=== PATIENT | female | born 1960 | race African-American/Black ===

== ENCOUNTER 2020-04-20 10:11 | Emergency (ER) | payer OTHER | END 2020-04-20 12:26 | disposition home or self-care (01) | LOC: JVIRT 10:11 | DX: Z20.822 Contact with and (suspected) exposure to COVID-19 (principal) | CPT/HCPCS: C9803; G2251-GT; Q3014-GT; U0003 ==

== ENCOUNTER 2020-06-10 12:59 | Emergency (ER) | payer OTHER ==
[2020-06-11 10:08] LABS: SARS-CoV-2 NAA Not Detected (Not Detected)
== END 2020-06-10 13:59 | disposition home or self-care (01) ==
LOC: JVIRT 12:59
DX: Z11.52 Encounter for screening for COVID-19 (principal)
CPT/HCPCS: C9803; G2251-GT; Q3014-GT; U0003; U0005

== ENCOUNTER 2020-08-28 00:53 | Emergency (ER) | payer OTHER ==
[2020-08-28] MEDS ORDERED: LABETALOL HCL 5 MG/1 ML (100MG/20 ML VIAL) IVPUSH ONE (01:09)
[2020-08-28 01:11] VITALS: TEMP 98.6; BMI 33.2
[2020-08-28] MEDS ORDERED: morphine CARPU-JECT 2 MG/1 ML DISP.SYRIN IVPUSH ONE (01:25)
[2020-08-28] MEDS ORDERED: MORPHINE SULFATE 2 MG/ML VIAL ONE (01:29)
[2020-08-28] MEDS ORDERED: ONDANSETRON 4 MG/2 ML VIAL IVPUSH ONE (01:33)
[2020-08-28] MEDS ORDERED: ONDANSETRON 4 MG/2 ML VIAL ONE (01:34)
[2020-08-28 01:36] LABS: BASO % 0.6 % (0-2.0); EOS % 2.2 % (0-4.5); HEMATOCRIT 43.9 % (32.4-45.2); HEMOGLOBIN 14.5 GM/dL (10.7-15.3); LYMPH % 9.1 % (8-40); MCH 28.9 pg (25.7-33.7); MEAN CELL VOLUME 87.5 fl (80-96); MEAN PLT VOLUME 9.7 fl (7.5-11.1); MONO % 4.6 % (3.8-10.2); NEUT % 83.5 % (42.8-82.8); PLATELET COUNT 293 10^3/uL (134-434); RBC 5.02 M/mm3 (3.60-5.2); RDW 13.4 % (11.6-15.6); WHITE BLOOD COUNT 10.5 K/mm3 (4.0-10.0)
[2020-08-28 01:44] LABS: INR 1.1 (0.83-1.09); PROTHROMBIN TIME (PATIENT) 13.5 SEC (9.7-13.0)
[2020-08-28 01:47] LABS: ACTIVATED PTT 31.2 SECONDS (25.2-36.5)
[2020-08-28 01:53] LABS: CHLORIDE 110 mmol/L (98-107); SODIUM 140 mmol/L (136-145)
[2020-08-28 01:56] LABS: ALBUMIN 4.4 g/dl (3.4-5.0); ANION GAP 9 MMOL/L (8-16); CALCIUM 9.5 mg/dL (8.5-10.1); CO2 21 mmol/L (21-32); GLUCOSE,RANDOM 115 mg/dL (74-106); LIPASE 70 U/L (73-393)
[2020-08-28 01:59] LABS: CREATININE 1.1 mg/dL (0.55-1.3); SGOT/AST 16 U/L (15-37); SGPT/ALT 18 U/L (13-61)
[2020-08-28 02:01] LABS: BILIRUBIN,TOTAL 0.4 mg/dL (0.2-1); TOT PROT 8.8 g/dl (6.4-8.2)
[2020-08-28 02:02] LABS: ALK PHOS 118 U/L (45-117)
[2020-08-28] MEDS ORDERED: morphine CARPU-JECT 4 MG/1 ML DISP.SYRIN IVPUSH ONE (03:00)
[2020-08-28] MEDS ORDERED: SODIUM CHLORIDE 0.9% 500 ML INFUS.BAG IV ONE (03:00)
[2020-08-28] MEDS ORDERED: morphine SULFATE 4 MG/ML VIAL ONE (03:18)
[2020-08-28 03:47] LABS: EPI CELLS >36 /uL (0-25.1); HYALINE CASTS 14 /uL (0-3.1); PH,URINE 5.5 (5.0-8.0); URINE APPEARANCE TURBID; URINE BACTERIA 6485 /uL (0-1359); URINE BILIRUBIN NEGATIVE (NEGATIVE); URINE COLOR YELLOW; URINE GLUCOSE (UA) NEGATIVE (NEGATIVE); URINE KETONE NEGATIVE (NEGATIVE); URINE LEUK ESTERASE 2+ (NEGATIVE); URINE NITRITE NEGATIVE (NEGATIVE); URINE PROTEIN 2+ (NEGATIVE); URINE WBC 425 /uL (0-25.8)
[2020-08-28] MEDS ORDERED: CEFTRIAXONE 1 GM in DEXTROSE 5%-WATER - 50 ML IVPB ONE (04:13)
[2020-08-28] MEDS ORDERED: VALSARTAN 40 MG TABLET PO ONE (04:14)
[2020-08-28] MEDS ORDERED: VALSARTAN 80 MG TABLET ONE (04:18)
[2020-08-28] MEDS ORDERED: CEFTRIAXONE 1 GM/50 ML BAG ONE (04:18)
[2020-08-28 06:53] VITALS: BP 231/119; PULSE 69
[2020-08-28 15:28] LABS: URINE RBC 31.2 /uL (0-23.9)
[2020-08-29] MEDS ORDERED: ENOXAPARIN NA (PORCINE) 40 MG/0.4 ML DISP.SYRIN SQ SCH (10:00)
== END 2020-08-28 06:53 | disposition home or self-care (01) ==
LOC: JER 00:53
DX: R10.31 Right lower quadrant pain (principal); N30.00 Acute cystitis without hematuria
CPT/HCPCS: 36415; 71045-TC-FY; 74176-TC; 80053; 81003; 83690; 84436; 84443; 84479; 84484; 85025; 85610; 85730; 87086; 87186; 93005; 93010; 99285-25

== ENCOUNTER 2020-08-29 00:08 | Inpatient (IN) | payer OTHER ==
[2020-08-29] MEDS ORDERED: SODIUM CHLORIDE 0.9% 500 ML INFUS.BAG IV ONE (01:26)
[2020-08-29] MEDS ORDERED: CEFTRIAXONE 1 GM in DEXTROSE 5%-WATER - 100 ML IVPB ONE (01:26)
[2020-08-29] MEDS ORDERED: morphine CARPU-JECT 4 MG/1 ML DISP.SYRIN IVPUSH ONE ×2 (01:26→02:44)
[2020-08-29] MEDS ORDERED: ONDANSETRON 4 MG/2 ML VIAL IVPUSH ONE (01:26)
[2020-08-29] MEDS ORDERED: LIDOCAINE 5% TOPICAL PATCH TP ONE (01:27)
[2020-08-29] MEDS ORDERED: KETOROLAC TROMETHAMINE 30 MG/1 ML VIAL IVPUSH ONE (01:58)
[2020-08-29] MEDS ORDERED: VALSARTAN 80 MG TABLET PO ONE (01:58)
[2020-08-29] MEDS ORDERED: morphine SULFATE 4 MG/ML VIAL ONE (02:19)
[2020-08-29] MEDS ORDERED: LIDOCAINE 5% TOPICAL PATCH ONE (02:19)
[2020-08-29] MEDS ORDERED: ONDANSETRON 4 MG/2 ML VIAL ONE ×2 (02:19→10:58)
[2020-08-29] MEDS ORDERED: CEFTRIAXONE 1 GM/50 ML BAG ONE (02:19)
[2020-08-29] MEDS ORDERED: KETOROLAC TROMETHAMINE 30 MG/1 ML VIAL ONE (02:44)
[2020-08-29] MEDS ORDERED: VALSARTAN 80 MG TABLET ONE (02:44)
[2020-08-29 03:10] LABS: BASO % 0.4 % (0-2.0); EOS % 0.1 % (0-4.5); HEMATOCRIT 43.3 % (32.4-45.2); HEMOGLOBIN 14.1 GM/dL (10.7-15.3); LYMPH % 8.9 % (8-40); MCH 28.5 pg (25.7-33.7); MCHC 32.5 g/dl (32.0-36.0); MEAN CELL VOLUME 87.8 fl (80-96); MEAN PLT VOLUME 10.4 fl (7.5-11.1); MONO % 4.9 % (3.8-10.2); NEUT % 85.7 % (42.8-82.8); PLATELET COUNT 292 10^3/uL (134-434); RBC 4.93 M/mm3 (3.60-5.2); RDW 13.3 % (11.6-15.6); WHITE BLOOD COUNT 12.6 K/mm3 (4.0-10.0)
[2020-08-29 03:28] LABS: ALBUMIN 4.4 g/dl (3.4-5.0); CALCIUM 9.2 mg/dL (8.5-10.1)
[2020-08-29 03:29] LABS: BLOOD UREA NITROGEN 15.9 mg/dL (7-18)
[2020-08-29 03:33] LABS: BILIRUBIN,TOTAL 0.6 mg/dL (0.2-1); TOT PROT 8.6 g/dl (6.4-8.2)
[2020-08-29] MEDS ORDERED: ACETAMINOPHEN 1000 MG/100 ML VIAL (NON FORMULARY) IVPB ONE (06:39)
[2020-08-29] MEDS ORDERED: ACETAMINOPHEN INJECTION 100 ML IVPB ONE (06:43)
[2020-08-29] MEDS ORDERED: hydrALAZINE HCL 20 MG/ML VIAL IVPUSH PRN (09:55)
[2020-08-29] MEDS ORDERED: morphine CARPU-JECT 4 MG/1 ML DISP.SYRIN IVPUSH PRN (09:57)
[2020-08-29] MEDS ORDERED: ACETAMINOPHEN 325 MG TABLET (FP) PO PRN (09:59)
[2020-08-29] MEDS ORDERED: MORPHINE SULFATE 2 MG/ML VIAL ONE ×2 (10:11→10:37)
[2020-08-29] MEDS: morphine SULFATE 4 MG/ML VIAL IVPUSH PRN (10:24)
[2020-08-29] MEDS ORDERED: PIPERACILLIN/TAZOB 3.375 GM 3.375 GM in DEXTROSE 5%-WATER - 50 ML IVPB SCH (10:30)
[2020-08-29] MEDS ORDERED: ONDANSETRON 4 MG/2 ML VIAL IVPUSH PRN (10:31)
[2020-08-29] MEDS ORDERED: PANTOPRAZOLE SODIUM 40 MG VIAL ONE (10:58)
[2020-08-29] MEDS ORDERED: PIPERACILLIN/TAZOB 3.375 GM 3.375 GM/50 ML BAG IVPB ONE (10:58)
[2020-08-29] MEDS: LABETALOL HCL 100 MG TABLET (FP) PO SCH ×2 (11:00→21:15)
[2020-08-29] MEDS: MORPHINE SULFATE 2 MG/ML VIAL IVPUSH PRN ×2 (11:01→18:31)
[2020-08-29] MEDS: PANTOPRAZOLE SODIUM 40 MG VIAL IVPUSH SCH ×2 (11:02→21:15)
[2020-08-29] MEDS: D5-1/2NS+10 MEQ KCL - 10 MEQ/1,000 ML INFUS.BAG IV SCH (12:44)
[2020-08-29] MEDS ORDERED: MORPHINE SULFATE 2 MG/ML VIAL IVPUSH ONE (12:45)
[2020-08-29] MEDS: ONDANSETRON 4 MG/2 ML VIAL IVPUSH SCH ×2 (13:30→21:15)
[2020-08-29] MEDS ORDERED: PIPERACILLIN/TAZOBACTAM 3.375 GM VIAL IVPB ONE (17:47)
[2020-08-29] MEDS ORDERED: DEXTROSE 5%-WATER - 50 ML IVPB ONE (17:47)
[2020-08-29] MEDS: PIPERACILLIN/TAZOB 3.375 GM 3.375 GM in DEXTROSE 5%-WATER - 50 ML IVPB SCH (17:53)
[2020-08-29] MEDS: hydrALAZINE HCL 20 MG/ML VIAL IVPB PRN (21:15)
[2020-08-29] MEDS ORDERED: LIDOCAINE PATCH REMOVAL MC ONE (22:00)
[2020-08-30] MEDS ORDERED: CEPHALEXIN MONOHYDRATE 500 MG CAPSULE (UD) PO SCH
[2020-08-30] MEDS ORDERED: DEXTROSE 5%-WATER - 50 ML IVPB ONE ×3 (02:41→18:21)
[2020-08-30] MEDS ORDERED: PIPERACILLIN/TAZOBACTAM 3.375 GM VIAL IVPB ONE ×3 (02:41→18:21)
[2020-08-30] MEDS: PIPERACILLIN/TAZOB 3.375 GM 3.375 GM in DEXTROSE 5%-WATER - 50 ML IVPB SCH ×3 (03:06→18:35)
[2020-08-30] MEDS: D5-1/2NS+10 MEQ KCL - 10 MEQ/1,000 ML INFUS.BAG IV SCH ×3 (03:07→17:37)
[2020-08-30] MEDS: MORPHINE SULFATE 2 MG/ML VIAL IVPUSH PRN ×3 (05:14→20:42)
[2020-08-30] MEDS: ONDANSETRON 4 MG/2 ML VIAL IVPUSH SCH ×3 (05:14→20:45)
[2020-08-30 10:03] LABS: BLOOD UREA NITROGEN 27.2 mg/dL (7-18); CALCIUM 8.4 mg/dL (8.5-10.1)
[2020-08-30 10:07] LABS: CREATININE 1.8 mg/dL (0.55-1.3)
[2020-08-30] MEDS: LABETALOL HCL 100 MG TABLET (FP) PO SCH ×2 (10:25→21:26)
[2020-08-30] MEDS: PANTOPRAZOLE SODIUM 40 MG VIAL IVPUSH SCH ×2 (10:25→21:26)
[2020-08-31] MEDS ORDERED: DEXTROSE 5%-WATER - 50 ML IVPB ONE ×3 (00:25→17:09)
[2020-08-31] MEDS ORDERED: PIPERACILLIN/TAZOBACTAM 3.375 GM VIAL IVPB ONE ×3 (00:25→17:09)
[2020-08-31] MEDS: PIPERACILLIN/TAZOB 3.375 GM 3.375 GM in DEXTROSE 5%-WATER - 50 ML IVPB SCH ×3 (01:13→17:27)
[2020-08-31] MEDS: MORPHINE SULFATE 2 MG/ML VIAL IVPUSH PRN (03:28)
[2020-08-31] MEDS: ONDANSETRON 4 MG/2 ML VIAL IVPUSH SCH ×3 (05:16→20:59)
[2020-08-31 08:20] LABS: BASO % 0.5 % (0-2.0); EOS % 6.4 % (0-4.5); HEMATOCRIT 35.8 % (32.4-45.2); HEMOGLOBIN 11.4 GM/dL (10.7-15.3); LYMPH % 16.6 % (8-40); MCH 28.3 pg (25.7-33.7); MCHC 31.9 g/dl (32.0-36.0); MEAN CELL VOLUME 88.6 fl (80-96); MEAN PLT VOLUME 10.1 fl (7.5-11.1); MONO % 9.8 % (3.8-10.2); NEUT % 66.7 % (42.8-82.8); PLATELET COUNT 225 10^3/uL (134-434); RBC 4.04 M/mm3 (3.60-5.2); RDW 13.2 % (11.6-15.6); WHITE BLOOD COUNT 8.1 K/mm3 (4.0-10.0)
[2020-08-31] MEDS: morphine SULFATE 4 MG/ML VIAL IVPUSH PRN (08:34)
[2020-08-31] MEDS: D5-1/2NS+10 MEQ KCL - 10 MEQ/1,000 ML INFUS.BAG IV SCH ×3 (08:35→22:57)
[2020-08-31 08:49] LABS: BLOOD UREA NITROGEN 25.1 mg/dL (7-18); CALCIUM 8.2 mg/dL (8.5-10.1)
[2020-08-31 08:53] LABS: CREATININE 1.3 mg/dL (0.55-1.3)
[2020-08-31] MEDS: PANTOPRAZOLE SODIUM 40 MG VIAL IVPUSH SCH ×2 (09:28→21:01)
[2020-08-31] MEDS: LABETALOL HCL 100 MG TABLET (FP) PO SCH ×2 (09:28→21:01)
[2020-08-31 17:39] VITALS: BMI 29.5
[2020-09-01] MEDS ORDERED: PIPERACILLIN/TAZOBACTAM 3.375 GM VIAL IVPB ONE ×3 (01:51→16:48)
[2020-09-01] MEDS ORDERED: DEXTROSE 5%-WATER - 50 ML IVPB ONE ×3 (01:51→16:49)
[2020-09-01] MEDS: MORPHINE SULFATE 2 MG/ML VIAL IVPUSH PRN ×3 (01:55→16:55)
[2020-09-01] MEDS: PIPERACILLIN/TAZOB 3.375 GM 3.375 GM in DEXTROSE 5%-WATER - 50 ML IVPB SCH ×3 (01:55→17:57)
[2020-09-01] MEDS: ONDANSETRON 4 MG/2 ML VIAL IVPUSH SCH ×3 (05:12→21:57)
[2020-09-01 09:28] LABS: BASO % 0.5 % (0-2.0); EOS % 7.8 % (0-4.5); HEMATOCRIT 34.3 % (32.4-45.2); HEMOGLOBIN 11.3 GM/dL (10.7-15.3); LYMPH % 14.3 % (8-40); MCH 28.9 pg (25.7-33.7); MCHC 32.8 g/dl (32.0-36.0); MEAN CELL VOLUME 87.9 fl (80-96); MEAN PLT VOLUME 9.8 fl (7.5-11.1); MONO % 9.9 % (3.8-10.2); NEUT % 67.5 % (42.8-82.8); PLATELET COUNT 213 10^3/uL (134-434); RDW 13.6 % (11.6-15.6); WHITE BLOOD COUNT 7.4 K/mm3 (4.0-10.0)
[2020-09-01 10:07] LABS: ERYTHROCYTE SEDIMENTATION RATE 59 mm/hr (0-30)
[2020-09-01] MEDS: PANTOPRAZOLE SODIUM 40 MG VIAL IVPUSH SCH ×2 (10:08→21:57)
[2020-09-01 10:15] LABS: CALCIUM 8.4 mg/dL (8.5-10.1)
[2020-09-01 10:18] LABS: BLOOD UREA NITROGEN 14.3 mg/dL (7-18); CREATININE 1.1 mg/dL (0.55-1.3)
[2020-09-01] MEDS: hydrALAZINE HCL 20 MG/ML VIAL IVPB PRN (15:03)
[2020-09-01] MEDS: D5-1/2NS+10 MEQ KCL - 10 MEQ/1,000 ML INFUS.BAG IV SCH (15:04)
[2020-09-01] MEDS: LABETALOL HCL 100 MG TABLET (FP) PO SCH ×2 (15:17→21:59)
[2020-09-02] MEDS ORDERED: DEXTROSE 5%-WATER - 50 ML IVPB ONE ×3 (01:05→17:13)
[2020-09-02] MEDS ORDERED: PIPERACILLIN/TAZOBACTAM 3.375 GM VIAL IVPB ONE ×3 (01:05→17:13)
[2020-09-02] MEDS: PIPERACILLIN/TAZOB 3.375 GM 3.375 GM in DEXTROSE 5%-WATER - 50 ML IVPB SCH ×3 (01:24→17:32)
[2020-09-02] MEDS: D5-1/2NS+10 MEQ KCL - 10 MEQ/1,000 ML INFUS.BAG IV SCH ×2 (03:31→10:29)
[2020-09-02] MEDS: ONDANSETRON 4 MG/2 ML VIAL IVPUSH SCH ×3 (05:52→21:56)
[2020-09-02] MEDS: PANTOPRAZOLE SODIUM 40 MG VIAL IVPUSH SCH ×2 (10:27→22:43)
[2020-09-02] MEDS: LABETALOL HCL 100 MG TABLET (FP) PO SCH ×2 (10:29→22:44)
[2020-09-02] MEDS: hydrALAZINE HCL 20 MG/ML VIAL IVPB PRN (15:42)
[2020-09-02] MEDS ORDERED: LABETALOL HCL 100 MG TABLET (FP) PO ONE (18:05)
[2020-09-02] MEDS: HEPARIN NA (PORCINE) 5,000 UNITS/ML 1ML VIAL SQ SCH ×2 (18:52→22:43)
[2020-09-02] MEDS: MORPHINE SULFATE 2 MG/ML VIAL IVPUSH PRN (22:58)
[2020-09-03] MEDS ORDERED: PIPERACILLIN/TAZOBACTAM 3.375 GM VIAL IVPB ONE ×3 (02:05→18:01)
[2020-09-03] MEDS ORDERED: DEXTROSE 5%-WATER - 50 ML IVPB ONE ×3 (02:05→18:01)
[2020-09-03] MEDS: PIPERACILLIN/TAZOB 3.375 GM 3.375 GM in DEXTROSE 5%-WATER - 50 ML IVPB SCH ×3 (02:33→18:33)
[2020-09-03] MEDS: ONDANSETRON 4 MG/2 ML VIAL IVPUSH SCH ×3 (06:27→20:35)
[2020-09-03] MEDS: HEPARIN NA (PORCINE) 5,000 UNITS/ML 1ML VIAL SQ SCH ×3 (06:28→22:40)
[2020-09-03] MEDS: PANTOPRAZOLE SODIUM 40 MG VIAL IVPUSH SCH ×2 (10:39→22:13)
[2020-09-03] MEDS: LABETALOL HCL 100 MG TABLET (FP) PO SCH ×2 (10:41→22:41)
[2020-09-03] MEDS: hydrALAZINE HCL 20 MG/ML VIAL IVPB PRN (20:47)
[2020-09-04] MEDS ORDERED: DEXTROSE 5%-WATER - 50 ML IVPB ONE ×4 (01:22→17:07)
[2020-09-04] MEDS ORDERED: PIPERACILLIN/TAZOBACTAM 3.375 GM VIAL IVPB ONE ×4 (01:22→17:07)
[2020-09-04] MEDS: PIPERACILLIN/TAZOB 3.375 GM 3.375 GM in DEXTROSE 5%-WATER - 50 ML IVPB SCH ×3 (01:30→17:13)
[2020-09-04] MEDS: ONDANSETRON 4 MG/2 ML VIAL IVPUSH SCH ×4 (05:47→21:49)
[2020-09-04] MEDS: HEPARIN NA (PORCINE) 5,000 UNITS/ML 1ML VIAL SQ SCH ×3 (05:47→21:47)
[2020-09-04] MEDS: LABETALOL HCL 100 MG TABLET (FP) PO SCH ×2 (09:02→21:49)
[2020-09-04] MEDS: PANTOPRAZOLE SODIUM 40 MG VIAL IVPUSH SCH ×2 (09:05→21:48)
[2020-09-04 09:14] LABS: BASO % 0.8 % (0-2.0); EOS % 7.8 % (0-4.5); HEMATOCRIT 36.6 % (32.4-45.2); HEMOGLOBIN 11.7 GM/dL (10.7-15.3); MCH 28.2 pg (25.7-33.7); MCHC 31.9 g/dl (32.0-36.0); MEAN CELL VOLUME 88.6 fl (80-96); MEAN PLT VOLUME 9.8 fl (7.5-11.1); NEUT % 72.4 % (42.8-82.8); PLATELET COUNT 256 10^3/uL (134-434); RBC 4.14 M/mm3 (3.60-5.2); RDW 13.6 % (11.6-15.6); WHITE BLOOD COUNT 7.4 K/mm3 (4.0-10.0)
[2020-09-04 09:36] LABS: BLOOD UREA NITROGEN 13.5 mg/dL (7-18); CALCIUM 8.9 mg/dL (8.5-10.1)
[2020-09-04 09:40] LABS: CREATININE 1.2 mg/dL (0.55-1.3)
[2020-09-04 09:43] LABS: AMYLASE 57 U/L (25-115); LIPASE 309 U/L (73-393)
[2020-09-04] MEDS: hydrALAZINE HCL 20 MG/ML VIAL IVPB PRN (11:27)
[2020-09-04] MEDS ORDERED: hydrALAZINE HCL 25 MG TABLET (FP) PO ONE (15:00)
[2020-09-04] MEDS: hydrALAZINE HCL 50 MG TABLET (FP) PO SCH (21:49)
[2020-09-05] MEDS ORDERED: PIPERACILLIN/TAZOBACTAM 3.375 GM VIAL IVPB ONE ×3 (00:26→17:24)
[2020-09-05] MEDS ORDERED: DEXTROSE 5%-WATER - 50 ML IVPB ONE ×3 (00:26→17:25)
[2020-09-05] MEDS: PIPERACILLIN/TAZOB 3.375 GM 3.375 GM in DEXTROSE 5%-WATER - 50 ML IVPB SCH ×3 (01:38→17:46)
[2020-09-05] MEDS: ONDANSETRON 4 MG/2 ML VIAL IVPUSH SCH ×3 (05:02→21:24)
[2020-09-05] MEDS: HEPARIN NA (PORCINE) 5,000 UNITS/ML 1ML VIAL SQ SCH ×3 (05:30→21:26)
[2020-09-05] MEDS: hydrALAZINE HCL 20 MG/ML VIAL IVPB PRN (05:49)
[2020-09-05 08:06] LABS: BASO % 0.6 % (0-2.0); EOS % 5.9 % (0-4.5); HEMATOCRIT 35.6 % (32.4-45.2); HEMOGLOBIN 11.5 GM/dL (10.7-15.3); LYMPH % 14.6 % (8-40); MCH 28.4 pg (25.7-33.7); MCHC 32.2 g/dl (32.0-36.0); MEAN CELL VOLUME 88.1 fl (80-96); MEAN PLT VOLUME 10.2 fl (7.5-11.1); MONO % 7.9 % (3.8-10.2); PLATELET COUNT 266 10^3/uL (134-434); RBC 4.04 M/mm3 (3.60-5.2); RDW 13.6 % (11.6-15.6); WHITE BLOOD COUNT 8.4 K/mm3 (4.0-10.0)
[2020-09-05 08:30] LABS: BLOOD UREA NITROGEN 11.5 mg/dL (7-18); CALCIUM 8.8 mg/dL (8.5-10.1)
[2020-09-05 08:34] LABS: CREATININE 1.2 mg/dL (0.55-1.3)
[2020-09-05] MEDS: PANTOPRAZOLE SODIUM 40 MG VIAL IVPUSH SCH ×2 (09:18→21:25)
[2020-09-05] MEDS: hydrALAZINE HCL 50 MG TABLET (FP) PO SCH ×3 (09:18→21:25)
[2020-09-05] MEDS: LABETALOL HCL 100 MG TABLET (FP) PO SCH ×2 (09:18→21:25)
[2020-09-05] MEDS ORDERED: hydrALAZINE HCL 50 MG TABLET (FP) PO ONE (10:07)
[2020-09-06] MEDS: ONDANSETRON 4 MG/2 ML VIAL IVPUSH SCH (04:46)
[2020-09-06] MEDS: HEPARIN NA (PORCINE) 5,000 UNITS/ML 1ML VIAL SQ SCH ×2 (06:00→15:11)
[2020-09-06 08:13] LABS: BASO % 0.6 % (0-2.0); EOS % 5.3 % (0-4.5); HEMOGLOBIN 11.3 GM/dL (10.7-15.3); LYMPH % 16.8 % (8-40); MCH 28.7 pg (25.7-33.7); MCHC 32.4 g/dl (32.0-36.0); MEAN CELL VOLUME 88.6 fl (80-96); MEAN PLT VOLUME 9.6 fl (7.5-11.1); MONO % 8.9 % (3.8-10.2); NEUT % 68.4 % (42.8-82.8); PLATELET COUNT 268 10^3/uL (134-434); RBC 3.95 M/mm3 (3.60-5.2); RDW 13.4 % (11.6-15.6); WHITE BLOOD COUNT 8.4 K/mm3 (4.0-10.0)
[2020-09-06 08:34] LABS: CALCIUM 8.8 mg/dL (8.5-10.1)
[2020-09-06 08:35] LABS: BLOOD UREA NITROGEN 13.2 mg/dL (7-18)
[2020-09-06 08:38] LABS: CREATININE 1.1 mg/dL (0.55-1.3)
[2020-09-06 08:39] LABS: BILIRUBIN,TOTAL 0.5 mg/dL (0.2-1)
[2020-09-06 08:44] LABS: ALBUMIN 3.3 g/dl (3.4-5.0); TOT PROT 6.5 g/dl (6.4-8.2)
[2020-09-06 09:28] LABS: ERYTHROCYTE SEDIMENTATION RATE 49 mm/hr (0-30)
[2020-09-06] MEDS: LABETALOL HCL 100 MG TABLET (FP) PO SCH (09:38)
[2020-09-06] MEDS: hydrALAZINE HCL 50 MG TABLET (FP) PO SCH (09:38)
[2020-09-06] MEDS: PANTOPRAZOLE SODIUM 40 MG VIAL IVPUSH SCH (11:36)
[2020-09-06 15:12] VITALS: BP 144/69; PULSE 69; TEMP 97.9
[2020-09-07] MEDS ORDERED: PANTOPRAZOLE 40 MG TABLET PO SCH (10:00)
[2020-09-08 01:10] LABS: RENIN ACTIVITY(PRA) < 0.167 ng/mL/hr (0.167-5.380)
== END 2020-09-06 17:16 | disposition home or self-care (01) | DRG 690 ==
LOC: JER 00:08 → JERBED 05:21 → J8W 11:20
PROVIDERS: ADMIT Hospitalist; ATTEND Internal Medicine
DX: N10 Acute pyelonephritis (principal); I10 Essential (primary) hypertension; K82.8 Other specified diseases of gallbladder; Z80.0 Family history of malignant neoplasm of digestive organs; K81.9 Cholecystitis, unspecified; I44.7 Left bundle-branch block, unspecified; R94.31 Abnormal electrocardiogram [ECG] [EKG]
CPT/HCPCS: 36415; 71250-TC; 74176-TC; 76700-TC; 78226-TC; 80048; 80053; 82088; 82150; 83690; 84244; 85025; 85651; 86140; 86850; 86900; 86901; 87040; 93005; 93010; 93306-TC; 93970-TC; 99285-25; A9537; C9803; J0131; J1644; U0003; U0005

== ENCOUNTER 2020-11-21 22:05 | Emergency (ER) | payer OTHER ==
[2020-11-21 22:23] VITALS: TEMP 98; BMI 28.0
[2020-11-21] MEDS ORDERED: FAMOTIDINE 20 MG/50 ML IVPB 20 MG in PREMIX 50 IVPB ONE (23:13)
[2020-11-21] MEDS ORDERED: MAG HYDROX/AL HYDROX/SIMETH -MYLANTA- ORAL SUSPENSION PO ONE (23:13)
[2020-11-21] MEDS ORDERED: KETOROLAC TROMETHAMINE 30 MG/1 ML VIAL IVPUSH ONE (23:13)
[2020-11-21] MEDS ORDERED: ONDANSETRON 4 MG/2 ML VIAL IVPUSH ONE (23:14)
[2020-11-21 23:32] LABS: BASO % 0.8 % (0-2.0); EOS % 5.5 % (0-4.5); HEMATOCRIT 34.9 % (32.4-45.2); HEMOGLOBIN 11.5 GM/dL (10.7-15.3); MCH 29.2 pg (25.7-33.7); MEAN CELL VOLUME 88.6 fl (80-96); MEAN PLT VOLUME 8.6 fl (7.5-11.1); MONO % 10.2 % (3.8-10.2); NEUT % 65.5 % (42.8-82.8); PLATELET COUNT 314 10^3/uL (134-434); RBC 3.94 M/mm3 (3.60-5.2); RDW 13.7 % (11.6-15.6); WHITE BLOOD COUNT 6.3 K/mm3 (4.0-10.0)
[2020-11-21] MEDS ORDERED: FAMOTIDINE 20 MG/50 ML IVPB 20 MG/50 ML MG IVPB ONE (23:35)
[2020-11-21] MEDS ORDERED: ONDANSETRON 4 MG/2 ML VIAL ONE (23:35)
[2020-11-21] MEDS ORDERED: KETOROLAC TROMETHAMINE 15 MG/ML VIAL ONE (23:35)
[2020-11-21] MEDS ORDERED: MAG HYDROX/AL HYDROX/SIMETH 30 ML UNIT-DOSE CUP ONE (23:35)
[2020-11-21 23:51] LABS: CHLORIDE 107 mmol/L (98-107); SODIUM 142 mmol/L (136-145)
[2020-11-21 23:53] LABS: ALBUMIN 3.8 g/dl (3.4-5.0); ANION GAP 7 MMOL/L (8-16); BLOOD UREA NITROGEN 20.7 mg/dL (7-18); CALCIUM 9.4 mg/dL (8.5-10.1); CO2 27 mmol/L (21-32)
[2020-11-21 23:54] LABS: GLUCOSE,RANDOM 93 mg/dL (74-106)
[2020-11-21 23:57] LABS: SGOT/AST 17 U/L (15-37); SGPT/ALT 15 U/L (13-61)
[2020-11-21 23:58] LABS: BILIRUBIN,TOTAL 0.6 mg/dL (0.2-1); TOT PROT 7.6 g/dl (6.4-8.2)
[2020-11-21 23:59] LABS: ALK PHOS 96 U/L (45-117)
[2020-11-22 00:38] LABS: LIPASE 49 U/L (73-393)
[2020-11-22 01:38] LABS: EPI CELLS >36 /uL (0-25.1); HYALINE CASTS 12 /uL (0-3.1); URINE APPEARANCE CLOUDY; URINE BACTERIA >9,000 /uL (0-1359); URINE BILIRUBIN NEGATIVE (NEGATIVE); URINE COLOR DK YELLOW; URINE GLUCOSE (UA) NEGATIVE (NEGATIVE); URINE KETONE NEGATIVE (NEGATIVE); URINE LEUK ESTERASE 2+ (NEGATIVE); URINE NITRITE POSITIVE (NEGATIVE); URINE PROTEIN NEGATIVE (NEGATIVE); URINE WBC 264 /uL (0-25.8)
[2020-11-22 03:28] VITALS: PULSE 64
[2020-11-22] MEDS ORDERED: hydrALAZINE HCL 10 MG TABLET PO ONE (03:35)
[2020-11-22] MEDS ORDERED: LABETALOL HCL 100 MG TABLET (FP) PO ONE (03:35)
[2020-11-22] MEDS ORDERED: SULFAMETHOXAZOLE/TRIMETHOPRIM 800MG/160MG D.S. TABLET PO ONE (03:36)
[2020-11-22] MEDS ORDERED: LABETALOL HCL 100 MG TABLET (FP) ONE (03:44)
[2020-11-22] MEDS ORDERED: SULFAMETHOXAZOLE/TRIMETHOPRIM 800MG/160MG D.S. TABLET ONE (03:44)
[2020-11-22 04:44] VITALS: BP 151/72
== END 2020-11-22 05:02 | disposition home or self-care (01) ==
LOC: JER 22:05
PROC: 3E033GC Introduction of Other Therapeutic Substance into Peripheral Vein, Percutaneous Approach (ICD-10-PCS; principal; 2020-11-21)
DX: N12 Tubulo-interstitial nephritis, not specified as acute or chronic (principal)
CPT/HCPCS: 36415; 74176-TC; 76705-TC; 80053; 81003; 82550; 83690; 84484; 85025; 93005; 93010; 99285-25

== ENCOUNTER 2021-08-01 05:05 | Emergency (ER) | payer OTHER ==
[2021-08-01 05:17] VITALS: BMI 25.8
[2021-08-01] MEDS ORDERED: OXYMETAZOLINE 0.05% NASAL SOLUTION 15 ML BOTTLE NS ONE (05:21)
[2021-08-01] MEDS ORDERED: TRANEXAMIC ACID 1000 MG/10 ML VIAL IVPUSH ONE (05:32)
[2021-08-01] MEDS ORDERED: TRANEXAMIC ACID 1000 MG/10 ML VIAL ONE ×2 (05:35→06:50)
[2021-08-01 06:09] LABS: BASO % 0.8 % (0-2.0); EOS % 5.3 % (0-4.5); HEMATOCRIT 37.8 % (32.4-45.2); HEMOGLOBIN 12.4 GM/dL (10.7-15.3); LYMPH % 26.6 % (8-40); MCH 29.5 pg (25.7-33.7); MCHC 32.9 g/dl (32.0-36.0); MEAN CELL VOLUME 89.6 fl (80-96); MEAN PLT VOLUME 10.1 fl (7.5-11.1); MONO % 7.6 % (3.8-10.2); NEUT % 59.7 % (42.8-82.8); PLATELET COUNT 257 10^3/uL (134-434); RBC 4.22 M/mm3 (3.60-5.2); RDW 13.1 % (11.6-15.6); WHITE BLOOD COUNT 6.5 K/mm3 (4.0-10.0)
[2021-08-01 06:28] LABS: INR 1.22 (0.83-1.09); PROTHROMBIN TIME (PATIENT) 14.1 SEC (9.7-13.0)
[2021-08-01 06:33] LABS: ALBUMIN 3.8 g/dl (3.4-5.0)
[2021-08-01 06:34] LABS: BLOOD UREA NITROGEN 18.5 mg/dL (7-18)
[2021-08-01] MEDS ORDERED: SODIUM CHLORIDE 0.9% 500 ML INFUS.BAG IV ONE (06:34)
[2021-08-01 06:37] LABS: CREATININE 0.9 mg/dL (0.55-1.3)
[2021-08-01 06:38] LABS: BILIRUBIN,TOTAL 0.6 mg/dL (0.2-1); TOT PROT 7.7 g/dl (6.4-8.2)
[2021-08-01 07:13] VITALS: PULSE 69; TEMP 98.1
[2021-08-01 07:44] VITALS: BP 199/110
== END 2021-08-01 08:00 | disposition home or self-care (01) ==
LOC: JER 05:05
PROC: 3E033GC Introduction of Other Therapeutic Substance into Peripheral Vein, Percutaneous Approach (ICD-10-PCS; principal; 2021-08-01)
DX: R04.0 Epistaxis (principal)
CPT/HCPCS: 36415; 80053; 85025; 85610; 86850; 86900; 86901; 99284-25

== ENCOUNTER 2021-11-25 12:12 | Emergency (ER) | payer OTHER ==
[2021-11-25 12:31] VITALS: BP 218/96; PULSE 69; RESP 19; TEMP 98.2; BMI 27.3
[2021-11-25 14:14] LABS: BASO % 1.1 % (0-2.0); EOS % 5.1 % (0-4.5); HEMATOCRIT 40.7 % (32.4-45.2); HEMOGLOBIN 13.1 GM/dL (10.7-15.3); LYMPH % 23.3 % (8-40); MCH 28.7 pg (25.7-33.7); MCHC 32.1 g/dl (32.0-36.0); MEAN CELL VOLUME 89.4 fl (80-96); MEAN PLT VOLUME 9.6 fl (7.5-11.1); MONO % 7.9 % (3.8-10.2); NEUT % 62.6 % (42.8-82.8); PLATELET COUNT 325 10^3/uL (134-434); RBC 4.56 M/mm3 (3.60-5.2); RDW 13.5 % (11.6-15.6); WHITE BLOOD COUNT 6.9 K/mm3 (4.0-10.0)
[2021-11-25 14:40] LABS: ALBUMIN 3.8 g/dl (3.4-5.0); BLOOD UREA NITROGEN 20.7 mg/dL (7-18); CALCIUM 9.5 mg/dL (8.5-10.1)
[2021-11-25 14:44] LABS: CREATININE 0.9 mg/dL (0.55-1.3)
[2021-11-25 14:46] LABS: BILIRUBIN,TOTAL 0.5 mg/dL (0.2-1); TOT PROT 7.7 g/dl (6.4-8.2)
[2021-11-25] MEDS ORDERED: ACETAMINOPHEN 325 MG TABLET (FP) PO ONE (16:07)
[2021-11-25] MEDS ORDERED: ACETAMINOPHEN 325 MG TABLET (FP) ONE (16:42)
== END 2021-11-25 18:21 | disposition home or self-care (01) ==
LOC: JER 12:12
DX: R05.1 Acute cough (principal); R09.81 Nasal congestion
CPT/HCPCS: 36415; 71046-TC-FY; 80053; 85025; 93005; 93010; 99285-25

== ENCOUNTER 2024-04-04 19:39 | Emergency (ER) | payer OTHER ==
[2024-04-05 00:03] VITALS: BP 00/00; BMI 29.5
== END 2024-04-05 00:08 | disposition expired ==
LOC: JER 19:39
PROC: 5A12012 Performance of Cardiac Output, Single, Manual (ICD-10-PCS; principal; 2024-04-04)
DX: I46.9 Cardiac arrest, cause unspecified (principal); R06.02 Shortness of breath
CPT/HCPCS: 92950; 99285-25